=== PATIENT | male | born 1950 | race Caucasian/White ===

== ENCOUNTER → 2020-03-27 | Outpatient (CLI) | payer MEDICARE, OTHER | LOC: CT 09:30 | DX: C09.9 Malignant neoplasm of tonsil, unspecified (principal); E86.1 Hypovolemia; M89.9 Disorder of bone, unspecified | CPT/HCPCS: 36415; 70470; 70491; 82565; Q9967 ==

== ENCOUNTER → 2020-07-10 | Outpatient (CLI) | payer MEDICARE, OTHER | LOC: US 09:52 | DX: R74.01 Elevation of levels of liver transaminase levels (principal); K76.0 Fatty (change of) liver, not elsewhere classified; G56.03 Carpal tunnel syndrome, bilateral upper limbs; G99.0 Autonomic neuropathy in diseases classified elsewhere; I10 Essential (primary) hypertension; F32.9 Major depressive disorder, single episode, unspecified; E78.2 Mixed hyperlipidemia; C09.9 Malignant neoplasm of tonsil, unspecified; E55.9 Vitamin D deficiency, unspecified | CPT/HCPCS: 76705 ==

== ENCOUNTER → 2020-09-11 | Outpatient (CLI) | payer MEDICARE, OTHER | LOC: HEART 5 07:55 | DX: R06.02 Shortness of breath (principal); I08.1 Rheumatic disorders of both mitral and tricuspid valves | CPT/HCPCS: 78452; 93306; A9502; J2785 ==